=== PATIENT | male | born 1980 | race Caucasian/White ===

== ENCOUNTER 2022-03-07 10:03 | Outpatient (CLI) | payer OTHER, SELFPAY ==
[2022-03-07 14:02] LABS: Albumin* 4.5 g/dL (3.3-5.0); Chloride* 106 mmol/L (96-114); Sodium* 140 mmol/L (135-149)
[2022-03-07 14:03] LABS: Potassium* 4.4 mmol/L (3.6-5.1)
[2022-03-07 14:04] LABS: Cholesterol* 124 mg/dL (90-199)
[2022-03-07 14:05] LABS: Alanine Aminotransferase* 32 U/L (4-50); Alkaline Phosphatase* 90 U/L (40-150); Aspartate Amino Transferase* 28 U/L (12-35); Bilirubin Total* 0.8 mg/dL (0.1-1.5); Blood Urea Nitrogen* 14 mg/dL (5-24); Calcium* 9.1 mg/dL (8.4-10.6); Carbon Dioxide* 27 mmol/L (20-32); Estimated Glomerular Filt Rate 96 ml/min; Glucose* 92 mg/dL (60-115); Triglycerides* 98 mg/dL (40-149)
[2022-03-07 14:06] LABS: HDL Cholesterol* 52 mg/dL (>=40); LDL Cholesterol Calculated 52 mg/dL (<100)
== END 2022-03-07 10:04 | disposition home or self-care (01) ==
PROVIDERS: PCP Family Medicine; Visit Provider Family Medicine
DX: Z00.00 Encounter for general adult medical examination without abnormal findings (principal); E78.5 Hyperlipidemia, unspecified
CPT/HCPCS: 80053; 80061

== ENCOUNTER 2023-06-27 07:45 | Outpatient (CLI) | payer OTHER, SELFPAY | END 2023-06-27 07:46 | disposition home or self-care (01) | PROVIDERS: PCP Physician Assistant Medical; Visit Provider Physician Assistant Medical | DX: Z00.00 Encounter for general adult medical examination without abnormal findings (principal); E78.5 Hyperlipidemia, unspecified; Z13.29 Encounter for screening for other suspected endocrine disorder | CPT/HCPCS: 80053; 80061; 84443 ==

== ENCOUNTER 2025-01-01 08:03 | Outpatient (CLI) | payer OTHER, SELFPAY | END 2025-01-01 08:04 | disposition home or self-care (01) | LOC: NFLDREF 01-03 13:46 | PROVIDERS: PCP Physician Assistant Medical; Referring Provider Physician Assistant Medical; Visit Provider Physician Assistant Medical | DX: Z00.00 Encounter for general adult medical examination without abnormal findings (principal); Z12.11 Encounter for screening for malignant neoplasm of colon; E78.5 Hyperlipidemia, unspecified | CPT/HCPCS: 80053; 80061; 84443 ==

== ENCOUNTER 2025-02-17 08:36 | Outpatient (CLI) | payer OTHER, SELFPAY ==
--- NOTE | 2025-02-17 09:47 | W.ANESCHARGE ---
Anesthesia Charges Start Date/Time Anesthesia Start Date: 02/17/25 Anesthesia Start Time: 09:22 Stop Date/Time Anesthesia Stop Date: 02/17/25 Anesthesia Stop Time: 09:47 Coding CPT Codes CPT Codes: RIVAS LWR INTST SCR COLSC - 79636 ([id number]) P2 - PATIENT W/MILD SYST DISEASE, QK - LEAN MANUFACTURING LEADER 2-4 CNCRNT ANES PROC, QX - GOAT HERDER SVC W/ MD MED DIRECTION
--- NOTE | 2025-02-17 09:47 | P.ANES_ITS ---
Anesthesia Charges Start Date/Time Anesthesia Start Date: 02/17/25 Anesthesia Start Time: 09:22 Stop Date/Time Anesthesia Stop Date: 02/17/25 Anesthesia Stop Time: 09:47 Coding CPT Codes CPT Codes: RIVAS LWR INTST SCR COLSC - [id number] ([id number]) P2 - PATIENT W/MILD SYST DISEASE, QK - CHILD SUPPORT AGENT 2-4 CNCRNT ANES PROC, QX - STATISTICAL PROGRAMMER ANALYST SVC W/ MD MED DIRECTION
--- NOTE | 2025-02-17 13:04 | P.ANES_ITS ---
Anesthesia Charges Start Date/Time Anesthesia Start Date: 02/17/25 Anesthesia Start Time: 09:22 Stop Date/Time Anesthesia Stop Date: 02/17/25 Anesthesia Stop Time: 09:47 Coding CPT Codes CPT Codes: RIVAS LWR INTST SCR COLSC - [id number] ([id number]) P2 - PATIENT W/MILD SYST DISEASE, QK - BOX ATTACHER 2-4 CNCRNT ANES PROC, QX - METAL CONTAINER MAKER SVC W/ MD MED DIRECTION
--- NOTE | 2025-02-17 13:04 | W.ANESCHARGE ---
Anesthesia Charges Start Date/Time Anesthesia Start Date: 02/17/25 Anesthesia Start Time: 09:22 Stop Date/Time Anesthesia Stop Date: 02/17/25 Anesthesia Stop Time: 09:47 Coding CPT Codes CPT Codes: RIVAS LWR INTST SCR COLSC - [id number] ([id number]) P2 - PATIENT W/MILD SYST DISEASE, QK - FUEL CELL TECHNICIAN 2-4 CNCRNT ANES PROC, QX - FERRY HAND SVC W/ MD MED DIRECTION
== END 2025-02-17 08:37 | disposition home or self-care (01) ==
LOC: OP CLINIC 08:38
PROVIDERS: PCP Physician Assistant Medical; Visit Provider Internal Medicine
DX: Z12.11 Encounter for screening for malignant neoplasm of colon (principal); K57.30 Diverticulosis of large intestine without perforation or abscess without bleeding
CPT/HCPCS: 00812; 45378; J2704